=== PATIENT | male | born 1980 | race Caucasian/White ===

== ENCOUNTER 2022-10-13 19:30 | Emergency (ER) | payer BC, SELFPAY ==
[2022-10-13 19:31] VITALS: BP 137/86; PULSE 80; RESP 15; TEMP 36.7; O2SAT 98; BMI 24.4
[2022-10-13] MEDS: 0.9% Normal Saline 1,000 ML 1000 ML IV ×2 (20:00→22:23)
[2022-10-13 20:14] LABS: Absolute Lymphocyte Count 1.57 X10^3/uL (0.83-4.51); Absolute Neutrophil Count 4.6 X10^3/uL (2.0-7.7); Basophil# 0.04 X10^3/uL; Basophil% 0.6 % (0-1); Eosinophil# 0.07 X10^3/uL; Hematocrit 45.9 % (40-54); Hemoglobin 15.7 g/dL (13.0-16.5); Lymphocyte # 1.57 X10^3/ul (0.83-4.51); Lymphocyte % 22.4 % (19-41); Mean Corp Hgb Conc 34.2 g/dL (32-36); Mean Corpuscular Hgb 31.4 pg (27.0-32.0); Mean Corpuscular Volume 91.8 fL (80-94); Mean Platelet Vol. 10.2 fl (6.2-12.0); Monocyte# 0.65 X10^3/uL; Monocyte% 9.3 % (0-10); NRBC Flagged by Analyzer 0 % (0-5); Neutrophil # 4.64 X10^3/uL (2.7-7.7); Neutrophil % 66.3 % (47-70); Platelet Count 254 K/mm3 (150-450); RBC Distribution Width CV 12.6 % (11.6-14.6)
[2022-10-13 20:28] LABS: Anion Gap 9 (5-15); BUN 11 mg/dL (7-18); BUN/Creat Ratio 11.6 RATIO (10-20); Calcium,Total 9.5 mg/dL (8.5-10.1); Chloride 105 mmol/L (98-107); Creatinine, Serum 0.95 mg/dL (0.70-1.30); EST Glomerular Filtration Rate 93 mL/min (>60); Est Glom Filt Rate - Afr Amer 113 mL/min (>60); Estimated Creatinine Clearance 110.09 ml/min; Glucose 101 mg/dL (74-106); Potassium 3.6 mmol/L (3.5-5.1); Sodium Level 139 mmol/L (136-145)
--- NOTE | 2022-10-13 20:58 | CT_ITS ---
EXAM: CT HEAD WITHOUT INTRAVENOUS CONTRAST CLINICAL INDICATION: Headache TECHNIQUE: Multiple axial images were obtained of the head without intravenous contrast. This CT exam was performed using one or more of the following dose reduction techniques: automated exposure control, adjustment of the mA and/or kV according to patient size, and/or use of iterative reconstruction technique. This report was created using [employer] report generation technology. RADIATION DOSE: CTDIvol = 44.99 mGy, DLP = 812.98 mGy-cm COMPARISON: None. FINDINGS: BRAIN AND EXTRA-AXIAL SPACES: Unremarkable. No intra- or extra-axial hemorrhage. No evidence of acute infarct. No intracranial mass or mass effect. There is preservation of the montez/white matter interface. Posterior fossa structures are unremarkable. Ventricles are appropriate for age. No hydrocephalus. Basal cisterns are patent. BONES/JOINTS: Unremarkable. No discrete lytic or blastic abnormalities. SINUSES: Unremarkable as visualized. Clear. MASTOID AIR CELLS: Unremarkable. Clear. ORBITS: Visualized globes, extraocular muscles, optic nerves and retrobulbar fat appear unremarkable. CT/Brain/Head without Contrast IMPRESSION: Negative head/brain CT without intravenous contrast. Electronically Signed: Chris Dixon MD at 21:37 EST ,
--- NOTE | 2022-10-13 20:59 | CT_ITS ---
STUDY: CT Abdomen And Pelvis W/O Contrast Injection 10/13/2022 9:36 PM REASON FOR EXAM: Male, 41 years old. ABDOMINAL PAIN pain TECHNIQUE: Transaxial images were obtained without oral contrast, and without intravenous contrast. Individualized dose optimization techniques were used for this CT. COMPARISON: 03.24.17. FINDINGS: The visualized lung bases are unremarkable. The visualized portions of the heart are within normal limits. Unremarkable liver. Unremarkable gallbladder and extrahepatic biliary system. Unremarkable spleen. Unremarkable pancreas. Unremarkable bilateral adrenal glands. No acute findings of the right kidney. No acute findings of the left kidney. Unremarkable visualized stomach. Unremarkable small intestine. Unremarkable colon. The appendix is visualized and appears unremarkable. There are calcifications of the abdominal aorta. This is consistent for atherosclerotic disease. There is no abdominal aortic aneurysm. Unremarkable inferior vena cava. Subcentimeter mesenteric lymph nodes. Unremarkable urinary bladder. Unremarkable abdominal wall. Unremarkable osseous structures. CT/Abdomen/Pelvis without Cont IMPRESSION: (NOT LISTED IN ORDER OF SIGNIFICANCE) There are no acute findings. Other findings as above. Electronically Signed: Chris Dixon MD at 21:39 EST ,
[2022-10-13] MEDS: Metoclopramide 10 MG/2 ML Vial IV (21:08)
[2022-10-13] MEDS: DiphenhydrAMINE 50 MG/ML Syringe 25 MG IV (21:08)
[2022-10-13 21:10] VITALS: PULSE 63; RESP 18; O2SAT 98
--- NOTE | 2022-10-13 22:00 | EX.ED.DYSGE1 ---
HPI History of Present Illness Chief Complaint: General Illness Informant: patient Onset/Context/Timing Onset: Yesterday Context: Gradual Onset Timing: Continuous Quality: Aching Location: Generalized Worsened by: Light Relieved by: Nothing Narrative Narrative: Patient presents with headache, fever, and body aches that began yesterday. Patient states they have gradually gotten worse. Patient states he feels achy all over. Patient admits to subjective fevers. Patient states his headache is worse with lights. Patient states his headache is generalized. Patient also admits to a sore throat. Patient admits to some blurred vision. Patient admits to nausea and vomiting. Patient states he has been unable to keep anything down. Patient denies any hematemesis or coffee-ground emesis. Patient denies any diarrhea, melena, or hematochezia. [facility] Medical History (Updated 10/13/22 @ 22:[address] Harrison Rosenberg DO) Kidney stones Home Medications ondansetron 4 mg disintegrating tablet 4 mg PO Q8H PRN PRN Nausea #10 tabs 10/13/22 [Rx Last Taken Unknown] Allergy/AdvReac Type Severity Reaction Status Date / Time banana Allergy Laryngospas Verified 10/13/22 19:35 ms latex Allergy Other Verified 10/13/22 19:35 morphine Allergy Hives Verified 10/13/22 19:35 fluoxetine HCl [From Prozac] AdvReac Upset Verified 10/13/22 19:35 Stomach Surgical History (Updated 10/13/22 @ 22:[address] Harrison Rosenberg DO) Hx of lithotripsy Social History Smoking Status: Current every day smoker tobacco type: cigarettes ROS ROS ED Constitutional Constitutional ED: Reports fever(s) and subjective; Denies chills Eyes Eyes: Reports blurry vision; Denies diplopia ENT ENT ED: Reports sore throat; Denies rhinorrhea Cardiovascular Cardiovascular: Denies chest pain or palpitations Respiratory/Chest Respiratory/Chest: Denies cough or dyspnea Gastrointestinal Gastrointestinal: Reports nausea and vomiting Genitourinary Genitourinary ED: Denies dysuria or hematuria Musculoskeletal Musculoskeletal: Reports back pain and myalgias Integumentary Denies abscess or rash Neurologic Neurologic: Reports headache(s); Denies weakness Allergic/Immunologic Allergic/Immunologic ED: Denies mouth swelling or urticaria EXAM Physical Exam Const Vital Signs: 10/13/22 19:31 10/13/22 19:48 10/13/22 21:10 Temperature 98.0 F Temperature Source Temporal Pulse Rate 80 63 Respiratory Rate 15 18 Respiratory Effort Normal Non-Labored Respiratory Pattern Normal Blood Pressure 137/86 H Blood Pressure Mean 103 Pulse Ox 98 98 Oxygen Delivery Method Room Air Room Air Positive well nourished and well developed General Appearance ED: well developed and NAD HEENT Reports moist mucous membranes Neck supple and no JVD Resp normal respiratory effort and clear to auscultation bilaterally Cardio regular rate, regular rhythm and no murmurs GI normal to inspection, nondistended, normoactive bowel sounds Palpation: soft and tender epigastric, LLQ, RLQ, LUQ, RUQ, periumbilical and suprapubic; Negative for guarding or rebound tenderness present Extremity normal to inspection General Extremety ED: Negative for edema or tenderness General Extremity: Negative for edema Neuro oriented x3, CN's II-XII intact bilaterally and no sensory deficits noted Sensorium / Orientation: alert Motor Exam: strength 5/5 throughout Psych mental status grossly normal Skin no rashes or lesions noted MDM MDM MDM Narrative Medical decision making narrative: Differential diagnosis includes viral syndrome, dehydration, migraine headache, gastroenteritis, COVID, and influenza. CBC was obtained to evaluate for leukocytosis and anemia. Basic metabolic profile was obtained to assess for electrolyte abnormality and renal function. CT scan of the brain was obtained to assess for intracranial bleeding and hemorrhage as a cause of his headache. CT scan of the abdomen pelvis was obtained to assess for bowel obstruction, perforation, and ureteral calculus. Lab Data Attestation: I reviewed the patient's lab results. Lab results narrative: CBC was reviewed and was within normal limits. Basic metabolic profile was reviewed and was within normal limits. COVID-19 rapid antigen was reviewed and was negative. Influenza A and influenza B antigens were reviewed and were negative. Labs: Laboratory Results - last 24 hr 10/13/22 10/13/22 19:56 19:56 WBC 7.0 RBC 5.00 Hgb 15.7 Hct 45.9 MCV 91.8 MCH 31.4 MCHC 34.2 RDW Std Deviation 42.0 RDW Coeff of Ramon 12.6 Plt Count 254 MPV 10.2 Immature Gran % (Auto) 0.400 Neut % (Auto) 66.3 Lymph % (Auto) 22.4 [place] % (Auto) 9.3 Eos % (Auto) 1.0 Baso % (Auto) 0.6 Absolute Neuts (auto) 4.6 Absolute Lymphs (auto) 1.57 Nucleated RBC % 0 Sodium 139 Potassium 3.6 Chloride 105 Carbon Dioxide 25.0 Anion Gap 9 BUN 11 Creatinine 0.95 Estim Creat Clear Calc 110.09 Est GFR (MDRD) Af Amer 113 Est GFR (MDRD) Non-Af 93 BUN/Creatinine Ratio 11.6 Glucose 101 Calcium 9.5 Radiography Diagnostic Testing: Clinical Impression(s) from Imaging Studies Brain CT 10/13/22 20:58 IMPRESSION: Negative head/brain CT without intravenous contrast. Electronically Signed: Chris Dixon MD at 21:37 EST , Abdomen/Pelvis CT 10/13/22 20:59 IMPRESSION: (NOT LISTED IN ORDER OF SIGNIFICANCE) There are no acute findings. Other findings as above. Electronically Signed: Chris Dixon MD at 21:39 EST , CT scan of the brain was obtained. There is no acute intracranial abnormality. This was interpreted by the radiologist and was also independently reviewed by myself. CT scan of the abdomen pelvis was obtained. On my independent interpretation, there is no evidence of bowel obstruction or perforation. There is no free air or free fluid. There is no acute abnormality. Radiologist also interpreted the CT scan and did not find any acute findings. Treatment and Re-Evaluation Narrative: Patient was given IV fluids, Reglan, and Benadryl. Patient was advised of his findings. Patient was advised that this is most likely a viral syndrome. Patient was instructed to drink plenty of fluids. Patient was given a prescription for Zofran. Patient was instructed to follow-up with his primary care physician in 5 to 7 days. Patient understood and was agreeable with the plan. All questions were answered. Discharge Plan Triage Chief Complaint: General Illness ED Provider: Harrison Rosenberg Dx/Rx/DC Orders Clinical Impression: Viral syndrome, Nausea and vomiting, Headache Instructions: ED Viral Syndrome (Adult), ED Vomiting (Adult) Prescriptions: New ondansetron [ondansetron] 4 mg tablet,disintegrating 4 mg PO Q8H PRN PRN (Reason: Nausea) Qty: 10 0RF Stand Alone Forms: ED Work / School Excuse Primary Care Provider: Care Physician,No Primary Referrals: Care Physician,No Primary [Primary Care Provider] -
[2022-10-13] MEDS: Ketorolac 30 MG/ML Syringe IV (22:23)
[2022-10-13] MEDS: Ondansetron 4 MG/2 ML Vial IV (22:24)
[2022-10-13 23:28] VITALS: BP 126/64; PULSE 68; RESP 18; O2SAT 98
== END 2022-10-13 23:29 | disposition home or self-care (01) ==
PROVIDERS: Emergency Provider Emergency Medicine; Visit Provider Emergency Medicine
DX: B34.9 Viral infection, unspecified (principal); R11.2 Nausea with vomiting, unspecified; F17.210 Nicotine dependence, cigarettes, uncomplicated; R51.9 Headache, unspecified; Z87.442 Personal history of urinary calculi
CPT/HCPCS: 70450; 74176; 80048; 85025; 87428; 96361; 96374; 96375; 99283; J7030; A4216; J2405

== ENCOUNTER 2025-07-18 22:12 | Emergency (ER) | payer OTHER, SELFPAY ==
[2025-07-18 22:12] VITALS: BP 126/84; PULSE 72; RESP 19; TEMP 36.3; O2SAT 100
[2025-07-18 22:19] VITALS: BMI 22.6
--- NOTE | 2025-07-18 22:36 | CT_ITS ---
PROCEDURE: BRAIN/HEAD WITHOUT CONTRAST 07/19/2025 REASON FOR EXAM: SYNCOPE TECHNIQUE: Procedure Code: CTBR Modality: CT Procedure: BRAIN/HEAD WITHOUT CONTRAST Coronal and Sagittal reconstruction series were provided. One or more dose reduction techniques were used (e.g., Automated exposure control, adjustment of the mA and/or kV according to patient size, use of iterative reconstruction technique. RADIATION DOSE SUMMARY: CTDI Vol 44.99 mGy DLP :846.73 mGycm COMPARISON: 13-Oct-2022 FINDINGS: Suboptimal examination quality due to motion artifact. The visualized brain parenchyma shows normal appearance. No focal parenchymal abnormalities are demonstrated. Benoit-white matter differentiation is maintained. Normal CT appearance of the posterior fossa structures. No intracerebral or extra-axial hemorrhage. No midline shifts or deformity. Normal size and configuration of the cerebral ventricles. No definite calvarial fractures. The osseous structures in the skull base are unremarkable. Scanned paranasal sinuses are unremarkable. CT/Brain/Head without Contrast IMPRESSION: No intracerebral or extra-axial hemorrhage. No acute territorial cerebrovascular insult. If clinical symptoms persist, furt her evaluation with MRI may be considered as clinically warranted. Reading Location: [id number]
[2025-07-18 22:45] LABS: Hematocrit 44.4 % (40-54); Hemoglobin 15.4 g/dL (13.0-16.5); Immature Granulocytes Count 0.050 X10^3/uL (0.0-0.0); Mean Corp Hgb Conc 34.7 g/dL (32-36); Mean Corpuscular Volume 89.9 fL (80-94); Mean Platelet Vol. 10.0 fl (6.2-12.0); NRBC Flagged by Analyzer 0 % (0-5); Platelet Count 285 K/mm3 (150-450); RBC Distribution Width CV 12.3 % (11.6-14.6); RBC Distribution Width SD 40.5 fl (35.1-43.9); Red Blood Count 4.94 M/mm3 (4.6-6.2); White Blood Count 10.5 K/mm3 (4.4-11.0)
[2025-07-18] MEDS: 0.9% Normal Saline (1000mL) 1,000 ML 999 ML IV (22:54)
[2025-07-18] MEDS: Ketorolac 30 MG/ML Syringe IV (22:57)
--- NOTE | 2025-07-18 22:59 | EDS_ITS ---
HPI History of Present Illness Chief Complaint: Syncope Informant: patient and family Narrative Narrative: Patient is a 44-year-old male with reported past medical history of kidney stone and vitamin deficiency. He states he is scheduled to undergo colonoscopy in the morning. He reports that after work he returned home and began drinking the prep. He states he did not eat at work which is normal for him. He states he made it through about half the prep and then developed bouts of nausea and vomiting and also felt lightheaded and dizzy and states he was at home passing out. He states that despite drinking the prep there has been no diarrhea. He denies any palpitations prior to his reported bouts of passing out at home. He states he has a headache but denies any trauma. As he is unsure if he is having side effects from the bowel prep or another issue causing his symptoms he presents for evaluation [facility] Medical History (Updated 07/19/25 @ 05:[address] Jose Irwin, DO) Kidney stones Home Medications ?Medication ?Instructions ?Recorded ?Last Taken ?Type ondansetron 4 mg disintegrating 4 mg PO Q8H PRN PRN Na usea #10 tabs 10/13/22 Unknown Rx tablet ondansetron 4 mg disintegrating 4 mg PO TID PRN nausea and 07/19/25 Unknown Rx tablet vomiting #21 tabs Allergy/AdvReac Type Severity Reaction Status Date / Time banana Allergy Laryngospas Verified 07/18/25 22:13 ms latex Allergy Other Verified 07/18/25 22:13 morphine Allergy Hives Verified 07/18/25 22:13 fluoxetine HCl (From Prozac) AdvReac Upset Verified 07/18/25 22:13 Stomach Surgical History Hx of lithotripsy Social History Smoking Status: Current every day smoker tobacco type: cigarettes ROS ROS ED Constitutional Constitutional ED: Denies chills or fever(s) Eyes Eyes: Denies change in vision ENT ENT ED: Denies rhinorrhea or sore throat Cardiovascular Cardiovascular: Reports other Details: Positive syncope ; Denies chest pain, palpitations or racing heartbeat Respiratory/Chest Respiratory/Chest: Denies cough or dyspnea Gastrointestinal Gastrointestinal: Reports nausea and vomiting; Denies abdominal pain or diarrhea Musculoskeletal Musculoskeletal: Reports myalgias Integumentary Denies rash Neurologic Neurologic: Reports headache(s) Hematologic/Lymphatic Hematologic/Lymphatic: Denies easy bleeding or easy bruising EXAM Physical Exam Const Vital Signs: 07/18/25 22:12 07/18/25 22:19 07/18/25 23:12 Temperature 97.4 F L Temperature Source Temporal Pulse Rate 72 73 Respiratory Rate 19 H 18 Respiratory Effort Normal Respiratory Pattern Normal Blood Pressure 126/84 H 125/90 H Blood Pressure Mean 98 101 Pulse Ox 100 94 Oxygen Delivery Method Room Air Room Air 07/19/25 00:00 07/19/25 00:27 Temperature 97.4 F L Temperature Source Pulse Rate 74 74 Respiratory Rate 16 16 Respiratory Effort Respiratory Pattern Blood Pressure 134/85 H 134/85 H Blood Pressure Mean 101 101 Pulse Ox 98 98 Oxygen Delivery Method Room Air Positive well nourished and well developed General Appearance ED: well developed; Negative for pallor HEENT Reports dry mucous membranes HEENT Narrative: Normocephalic atraumatic No tongue or lip swelling no oral lesions no airway edema or compromise; no secondary findings in the posterior pharynx to suggest infection No tongue or cheek biting to suggest seizure activity Mucous membranes are dry and tacky Mouth ED: Yes dry mucous membranes Mouth: dry mucous membranes Eyes PERRL and EOMs intact bilaterally General Eye ED: Negative for scleral icterus Neck supple Neck Narrative: No nuchal rigidity or meningeal signs Resp normal respiratory effort and clear to auscultation bilaterally Cardio regular rate and regular rhythm Rate: other Other Details: Regular rate and rhythm without murmurs rubs or gallops Radial and carotid pulses are equal and symmetric GI normal to inspection, nondistended, normoactive bowel sounds, non-tender, non- distended and no masses GI Narrative: No voluntary guarding or rigidity or pulsatile mass No peritoneal signs Auscultation: normoactive bowel sounds Palpation: soft Extremity normal to inspection Neuro oriented x3, CN's II-XII intact bilaterally and no sensory deficits noted Neuro Narrative: GCS of 15 Cranial nerves II through XII are grossly intact without focal neurologic deficit No pronator drift no dysmetria no truncal ataxia NIH stroke scale score of 0 Sensorium / Orientation: alert Motor Exam: strength 5/5 throughout Psych mental status grossly normal Mood & Affect: anxious Skin no rashes or lesions noted and skin turgor normal General Skin Exam: Negative for jaundice or pallor MDM MDM MDM Narrative Medical decision making narrative: Patient arrived to the ER with stable vitals. He reported episodes of passing out at home after beginning his bowel prep. In order to assess for acute blood loss anemia or clinically significant electrolyte abnormality or acute kidney injury as potential causes basic blood work was obtained. With a headache there is concern potential bleed such as subarachnoid or subdural hemorrhage or brain mass so head CT was ordered as well. As he has shaking chills associate with symptoms a viral swab for COVID influenza and RSV was ordered. In order to check for potential acute coronary syndrome or cardiac dysrhythmia an EKG and troponin were obtained as well as patient being placed on the traffic monitor specialist. The patient's workup revealed no clinically significant findings and after receiving Toradol Valium and IV fluids he reported feeling much better. He was able to ambulate with a steady gait and had no further symptoms. Therefore at this time with resolution of symptoms and overall negative workup and stable vitals I do not feel there is need for further intervention or workup in the ER and is otherwise safe for discharge History & Record Review Discussion w/independent historian: Patient and Family Lab Data Attestation: I reviewed the patient's lab results. Labs: Laboratory Results - last 24 hr 07/18/25 22:24 WBC 10.5 RBC 4.94 Hgb 15.4 Hct 44.4 MCV 89.9 MCH 31.2 MCHC 34.7 RDW Std Deviation 40.5 RDW Coeff of Ramon 12.3 Plt Count 285 MPV 10.0 Immature Gran % (Auto) 0.500 Neut % (Auto) 73.9 H Lymph % (Auto) 19.5 [place] % (Auto) 5.1 Eos % (Auto) 0.6 Baso % (Auto) 0.4 Absolute Neuts (auto) 7.8 H Absolute Lymphs (auto) 2.04 Nucleated RBC % 0 Sodium 137 Potassium 3.7 Chloride 100 Carbon Dioxide 25.2 Anion Gap 12 BUN 9 Creatinine 1.10 Estim Creat Clear Calc 90.02 Est GFR (MDRD) Non-Af 85 BUN/Creatinine Ratio 8.2 L Glucose 111 H Calcium 10.1 Magnesium 2.2 Total Bilirubin 1.01 Direct Bilirubin 0.33 H AST 20 ALT 11 Alkaline Phosphatase 111 Troponin T High Sens < 6 Total Protein 7.4 Albumin 4.7 Globulin 2.7 Lipase 49 Radiography Diagnostic Testing: Clinical Impression(s) from Imaging Studies Brain CT 07/18/25 22:36 IMPRESSION: No intracerebral or extra-axial hemorrhage. No acute territorial cerebrovascular insult. If clinical symptoms persist, further evaluation with MRI may be considered as clinically warranted. Reading Location: [place] [address] Discharge Plan Triage Chief Complaint: Syncope ED Provider: Jose Irwin Dx/Rx/DC Orders Clinical Impression: Nausea and vomiting, Myalgia, Shaking chills, Cephalgia Instructions: ED Fainting, Uncertain Cause, ED Vomiting (Adult) Prescriptions: New ondansetron 4 mg tablet,disintegrating 4 mg PO TID PRN (Reason: nausea and vomiting) Qty: 21 0RF No Action ondansetron [ondansetron] 4 mg tablet,disintegrating 4 mg PO Q8H PRN PRN (Reason: Nausea) Qty: 10 0RF Stand Alone Forms: ED Work / School Excuse Primary Care Provider: Reji Uribe Referrals: Reji Uribe MD [Primary Care Provider, Family Practice] Activity Restrictions/Additional Instructions: Your workup today revealed no sign of abnormal heart rhythm or active heart damage. Electrolytes and kidney function were within normal limits as well. Please take the Zofran as directed to help control any further bouts of nausea and vomiting. Discuss a potential Holter monitor/event monitor with your family doctor to further assess for any potential abnormal heart rhythm as a cause of your symptoms and return to the ER should you have any further concerns Print Language: Martiniquais Disposition Disposition: Home, Self Care Discharge Date/Time: 07/19/25 00:36
[2025-07-18 23:12] VITALS: BP 125/90; PULSE 73; RESP 18; O2SAT 94
[2025-07-18 23:13] LABS: Troponin T High Sensitivity < 6 ng/L (<=22)
[2025-07-18 23:14] LABS: AST(SGOT) 20 U/L (<=37); Alanine Aminotransfer ALT/SGPT 11 U/L (<=46); Albumin, Serum 4.7 g/dL (3.5-5.0); Alkaline Phosphatase 111 U/L (40-129); Anion Gap 12 (5-15); BUN 9 mg/dL (4-19); BUN/Creat Ratio 8.2 RATIO (10-20); Bilirubin, Direct 0.33 mg/dL (0.00-0.30); Calcium,Total 10.1 mg/dL (7.6-11.0); Carbon Dioxide 25.2 mmol/L (21.0-32.0); Chloride 100 mmol/L (98-108); Estimated Creatinine Clearance 90.02 ml/min (50-250); Globulin 2.7 g/dL (2.2-4.2); Glucose 111 mg/dL (70-99); Lipase 49 U/L (13-75); Magnesium 2.2 mg/dL (1.5-2.2); Potassium 3.7 mmol/L (3.3-5.1)
[2025-07-19] VITALS: BP 134/85; PULSE 74; RESP 16; O2SAT 98
[2025-07-19 00:27] VITALS: BP 134/85; PULSE 74; RESP 16; TEMP 36.3; O2SAT 98
== END 2025-07-19 00:36 | disposition home or self-care (01) ==
PROVIDERS: Emergency Provider Emergency Medicine; PCP Family Medicine; Visit Provider Emergency Medicine
DX: R11.2 Nausea with vomiting, unspecified (principal); M79.10 Myalgia, unspecified site; R55 Syncope and collapse; Z87.442 Personal history of urinary calculi; F17.210 Nicotine dependence, cigarettes, uncomplicated; R51.9 Headache, unspecified; R68.83 Chills (without fever)
CPT/HCPCS: 70450; 80048; 80076; 83690; 83735; 84484; 85025; 87631; 93005; 96361; 96374; 96375; 99283; A4216; J2405